=== PATIENT | male | born 1980 | race Two or more races ===

== ENCOUNTER → 2024-08-26 | Outpatient (CLI) | payer SELFPAY | END | disposition home or self-care (01) | PROVIDERS: Referring Provider Otolaryngology; Visit Provider Otolaryngology | DX: J32.9 Chronic sinusitis, unspecified (principal) | CPT/HCPCS: 87070; 87205 ==

== ENCOUNTER 2025-04-27 11:30 | Outpatient (RCR) | payer OTHER, SELFPAY ==
[2025-04-20 09:46] VITALS: BP 145/93; PULSE 66; RESP 18; TEMP 36.4; BMI 27.7
--- NOTE | 2025-04-20 12:46 | PCM.WC.HP ---
History of Present Illness Date of Service: 04/20/25 Chief Complaint: Follow-up on his left medial leg around the heel area just above the heel. 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 Many years ago around 2009. 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 He has history of venous ulcers and this 1 just started out of nowhere he is not sure why. He wears compression stockings that are 22 mmHg all the time especially at work and he does have a vascular doctor that he is actually going to see tomorrow. He has been putting on it a hydrocolloid one by one and it looks very macerated underneath and has a little bit of depth. It is small and irregular oval-shaped ulcer on the right just above his heel, on the medial side. COUNT INCLUDES THE [facility] Home Medications Medication Instructions Recorded Last Taken Type diosmin complex no.1 630 mg tablet 1 tab PO TID 04/20/25 Unknown History (Vasculera) rivaroxaban 20 mg tablet (Xarelto) 20 mg PO DAILY 04/20/25 Unknown History Allergy/AdvReac Type Severity Reaction Status Date / Time No Known Allergies Allergy Verified 04/20/25 09:44 Social History Smoking Status: Never smoker ROS Constitutional Constitutional: Reports systems reviewed and no addt'l complaints, except as documented Eyes Eyes: Reports systems reviewed and no addt'l complaints, except as documented ENT HEENT: Reports systems reviewed and no addt'l complaints, except as documented Cardiovascular Cardiovascular: Reports systems reviewed and no addt'l complaints, except as documented Respiratory/Chest Respiratory/Chest: Reports systems reviewed and no addt'l complaints, except as documented Gastrointestinal Gastrointestinal: Reports systems reviewed and no addt'l complaints, except as documented Genitourinary Genitourinary: Reports systems reviewed and no addt'l complaints, except as documented Musculoskeletal Musculoskeletal: Reports systems reviewed and no addt'l complaints, except as documented Integumentary Integumentary: Reports other Details: Venous ulcer on the medial heel side of his right leg about the size of a dime. Neurologic Neurologic: Reports systems reviewed and no addt'l complaints, except as documented Psychiatric Psychiatric: Reports systems reviewed and no addt'l complaints, except as documented Endocrine Endocrinology: Reports systems reviewed and no addt'l complaints, except as documented Hematologic/Lymphatic Hematologic/Lymphatic: Reports systems reviewed and no addt'l complaints, except as documented Allergic/Immunologic Allergic/Immunologic: Reports systems reviewed and no addt'l complaints, except as documented Vital Signs Vital Signs Vital Signs: 04/20/25 09:46 Temperature 97.5 F L Temperature Source Temporal Pulse Rate 66 Respiratory Rate 18 Blood Pressure 145/93 H Blood Pressure Mean 110 Blood Pressure Source Monitor Blood Pressure Position Semi-Fowlers Blood Pressure Location Left Arm Weight Weight: 240 lb Body Mass Index (BMI) 27.7 Physical Exam Const oriented x3 General Appearance: cooperative HEENT normocephalic Face and Sinus: normal facial exam Nose: external nose normal External Ear: external ears normal Eyes General Eye: normal appearance of both eyes Neck General: normal visual inspection Resp normal respiratory effort Effort and Inspection: able to speak in complete sentences Auscultation: clear to auscultation bilaterally Cardio regular rate and regular rhythm Palpation: normal PMI Rate: regular rate Rhythm: regular rhythm Extremity General Extremity: normal exam except as noted Skin No no wounds and No no petechiae General Skin Exam: erythema and venous stasis Lesions: lesion noted and other Rashes: rashes noted Wound Narrative: Venous ulcer on right lower medial ankle foot area. Open irregular edges kind of macerated. Neuro oriented x3 Psych Appearance: grossly normal Speech: normal speech Thought Content: normal thought content Judgement: judgement good Debridement Note Debridement Note Wound debrided: Venous ulcer Laterality: Right Type of Debridement: Excisional debridement Anesthesia Used: 5% Lidocaine Gel Depth: Down to and including healthy tissue Percentage of wound debrided: 100 Instrument Used: 5mm curette Tissue Removed: Fibrin and devitalized tissue Severity: Fat Layer Exposed Amount of bleeding with debridement: Mild Bleeding Controlled with: Compression and gauze Patient tolerated procedure: Patient tolerated procedure well Post-Debridement Measurements and Additional Note: Post-Debridement Measurements/Treatment WC - Nurse 1 - General Ulcer Assessment Start: 04/20/25 09:43 Freq: Status: Active Protocol: [email or web address] Activity Type Activity Date Activity User E-sign Co-sign Detail Recorded Client Recorded Date Recorded By Document 04/20/25 09:46 RB [id number] 04/20/25 09:55 RB 04/20/25 09:46 WC - Today's Visit Information Type of service Initial Visit Arrival Mode Ambulatory Transfer Assistance None Patient Identification Verified (Name & Yes ) Patient Requires Transmission-Based No Precautions Height and Weight Height 6 ft 6 in Weight 240 lb Weight in Pounds 240.0 lbs Body Mass Index (BMI) 27.7 BMI Classification Overweight Vital Signs Temperature (97.8 F-99.1 F) 97.5 F L Temperature Source Temporal Pulse Rate (60-100) 66 Pulse Location Monitor Respiratory Rate (12-18) 18 Respiratory rate source Observation Blood Pressure (90/60-120/80) 145/93 H Blood Pressure Mean 110 Source Monitor Position Semi-Fowlers Blood Pressure Location Left Arm History Since Last Visit- (Skip if this is Patient's initial visit) Have you changed medications since your No last visit? Any new allergies or adverse reactions No Had a fall/change in ADL's that may No increase risk of falls Signs or symptoms of abuse and/or No neglect since last visit Have you been in the hospital since your No last visit? Has dressing in place as prescribed Yes Has compression in place as prescribed Yes Has offloadiing in place as prescribed N/A Experienced any changes in pain level or No management Left Footwear Regular Shoe Right Footwear Regular Shoe Pain Scale: 0-10 Numeric Is Patient Pain Free? Yes Lower Extremity Assessment/ Foot Assessment/ Toe Nail Assessment Right -Posterior Tibial Palpable Yes -Dorsalis Pedis Palpable Yes -Extremity Color Normal -Hair Growth on Legs Yes -Hair Growth on Toes Yes -Temperature of Extremity Warm -Capillary Refill Less than 3 Seconds -Dependent Rubor No -Blanched when Elevated No -Lipodermatosclerosis No -Other Deformity No -Prior Foot Ulcer No -Charcot Joint No -Prior Amputation No -Thick No -Discolored No -Deformed No -Improper Length & Hygeine Yes Left -Posterior Tibial Palpable Yes -Dorsalis Pedis Palpable Yes -Extremity Color Hemosiderin -Hair Growth on Legs Yes -Hair Growth on Toes Yes -Temperature of Extremity Warm -Capillary Refill Greater than 3 Seconds -Dependent Rubor No -Blanched when Elevated No -Lipodermatosclerosis No -Other Deformity No -Prior Foot Ulcer No -Charcot Joint No -Prior Amputation No -Thick No -Discolored No -Deformed No -Improper Length & Hygeine Yes Neuropathy Assessment Feet - Top Side and Bottom <Entered> (a) Communication Assessment Preferred language Croatian Social Work Nurse Required No Able to Read Yes Able to Write Yes Communication Tools None Right Hearing Abillity Normal Left Hearing Abillity Normal Visual Assistive Devices None Teaching Assessment Preferences Verbal,Written Barriers to Learning None Readiness To Learn Excellent Willingness to Engage in Self Management High Activies Readiness to Engage in Self Management High Activities Anxiety Level Calm Cooperation Cooperative Perception Coherent Interest in Health Problem Asks Questions Education Importance Acknowledges Need Does Patient Smoke tobacco or other No substances Smoking Status Never smoker Is Patient Diabetic No Functional Assessment Recent Decline in Ability to Perform Denies Any Declines Assistive Device With Patient No Culture/Islam/Acid Dumper Cultural/Islam Needs that may affect No Treatment Plan Would you allow our hospital transaction manager to No meet you for the purpose of spiritual/ emotional support? Acid Dumper to contact place of buddhism No Teaching: Wound Center *Welcome to the Wound Center -Person Taught Patient -Teaching Method Discussion, Demonstration -Response to teaching Verbalize Understanding (a) 1 - + throughout WC - Nurse 1 - General Ulcer Measurement Start: 04/20/25 09:43 Freq: Status: Active Protocol: Activity Type Activity Date Activity User E-sign Co-sign Detail Recorded Client Recorded Date Recorded By Document 04/20/25 09:46 RB [id number] 04/20/25 09:55 RB Edit Result 04/20/25 09:46 RB (1) [id number] 04/20/25 10:57 RB (1) 1. left medial ankle - Moisture (Lyndsay-wound Skin Appearance) Assessed => Assessed, => Maceration 04/20/25 09:46 Wound Center Nurse 1 1. left medial ankle -Combined with other wound No -Current Size (cm) - Length 0.8 -Current Size (cm) - Width 0.9 -Current Size (cm) - Depth 0.2 -Total Square Cm 0.72 -Photo Taken Yes -Tunneling No -Undermining/Tunneling No -Circular Undermining No -Exudate Amt Medium -Exudate Type Serosanguineous -Wound Margin Distinct, Outline Attached -Granulation Amt Medium (34-66%) -Granulation Quality [place] -Slough/Fibrin Yes -Necrosis Amt Medium (34-66%) -Necrotic Tissue Type Adherent Slough -Structure Exposed N/A -Texture (Lyndsay-wound Skin Appearance) Assessed -Moisture (Lyndsay-wound Skin Appearance) Assessed, Maceration -Color (Lyndsay-wound Skin Appearance) Hemosiderin Staining -Temperature (Lyndsay-wound Skin No Abnormality Appearance) (Pt Warm) -Tenderness on Palpation (Lyndsay-wound No Skin Appearance) -Ulcer Cleansing Wound Cleanser -Foul Odor after Cleansing No -Anesthetic Used 5% Lidocaine Gel Lower Limb Edema Present Yes Right Calf (cm) 43 Right Ankle (cm) 24.6 Left Calf (cm) 42.7 Left Ankle (cm) 25.5 WC - Nurse 2 - General Ulcer CM Notes Start: 04/20/25 09:43 Freq: Status: Active Protocol: Activity Type Activity Date Activity User E-sign Co-sign Detail Recorded Client Recorded Date Recorded By Document 04/20/25 10:06 [facility] [id number] 04/20/25 10:17 BM 04/20/25 10:06 Wound Center Nurse 2 1. left medial ankle -Time 10:07 -Correct Patient Yes -Correct Side, Site, Position Yes -Correct Procedure Yes -Procedure Performed Yes -Type of Procedure Debridement -Clinical Debridement Subcutaneous -Tissue Removed Subcutaneous -Post Debridement (cm) - Length 0.8 -Post Debridement (cm) - Width 0.8 -Post Debridement (cm) - Depth 0.2 -Total Square (Post) (cm) 0.64 -Area of Debridement (cm) - Length 0.8 -Area of Debridement (cm) - Width 0.8 -Total Square (Area) (cm) 0.64 -Tunneling No -Undermining/Tunneling No -Circular Undermining No -Wound/Ulcer Outcome Not Healed -Ulcer Cleansing Rinsed/ Irrigated with Saline -Foul Odor after Cleansing No -Bioengineered Tissue No -Bleeding Controlled with Pressure -Treatment Response Procedure Tolerated Well -Debridement - Subq, 1st 20sq cm Yes Pain Scale: 0-10 Numeric Is Patient Pain Free? Yes - Nurse 3 - General Ulcer D/C NN Start: 04/20/25 09:43 Freq: Status: Active Protocol: Activity Type Activity Date Activity User E-sign Co-sign Detail Recorded Client Recorded Date Recorded By Document 04/20/25 10:31 DL [id number] 04/20/25 10:33 DL 04/20/25 10:31 Wound Care Center Nurse 3 1. left medial ankle -Ulcer Cleansing Rinsed/ Irrigated with Saline -Foul Odor after Cleansing No -Primary Dressing Applied Fibracol Plus 4x4,Silicone Border Foam 4x4 -Fibracol Plus 4x4 1 -Silicone Border Foam 4x4 1 Pain Scale: 0-10 Numeric Is Patient Pain Free? Yes WC - Visit Discharge Discharge Condition Stable Ambulatory Status Ambulatory Transportation Private Auto Assessment/Plan Assessment/Plan (1) Venous ulcer of right lower extremity with varicose veins: CODE(S): I83.019 - Varicose veins of right lower extremity with ulcer of unspecified site; L97.919 - Non-pressure chronic ulcer of unspecified part of right lower leg with unspecified severity PLAN: Wash right leg with antibacterial soap and water and pat dry apply Fibracol to wound base moistened with a 2 x 2 Gillette SAP over top this can be done twice a day till healed. Follow-up in 1 week (2) Nonhealing ulcer of right lower leg: CODE(S): L97.919 - Non-pressure chronic ulcer of unspecified part of right lower leg with unspecified severity QUALIFIERS: Non-pressure ulcer stage: with fat layer exposed Qualified Code(s): L97.912 - Non-pressure chronic ulcer of unspecified part of right lower leg with fat layer exposed (3) History of blood clots: CODE(S): Z86.718 - Personal history of other venous thrombosis and embolism
--- NOTE | 2025-04-20 13:58 | WC ---
PHOTO-LEFT MEDIAL ANKLE 04/20/25
[2025-04-27 11:50] VITALS: BP 127/83; PULSE 46; RESP 18; TEMP 36.2; BMI 27.7
--- NOTE | 2025-04-27 12:53 | PN.PCM_ITS ---
History of Present Illness Date of Service: 04/27/25 Chief Complaint: Follow-up on his left medial leg around the heel area just above the heel. 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 Many years ago around 2009. 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 He has history of venous ulcers and this 1 just started out of nowhere he is not sure why. He wears compression stockings that are 22 mmHg all the time especially at work and he does have a vascular doctor that he is actually going to see tomorrow. He has been putting on it a hydrocolloid one by one and it looks very macerated underneath and has a little bit of depth. It is small and irregular oval-shaped ulcer on the right just above his heel, on the medial side. Progress of Wound: The wound is practically healed he just has a small divot there we will see him again in 2 weeks he can continue the same dressing changes it just seems to ooze a little bit but he sees vascular surgery this next week. Subjective Subjective Patient asked to be seen in 2 weeks because he is going to see the vascular surgeon this next week. Objective Data Objective Data Healing nicely no redness flesh-colored is just in a precarious position of between around his heel but above on his ankle. Vital Signs: Vital Signs Temp Pulse Resp BP 97.1 F L 46 L 18 127/83 H 04/27/25 11:50 04/27/25 11:50 04/27/25 11:50 04/27/25 11:50 Weight: 240 lb Body Mass Index (BMI) 27.7 Physical Exam Const oriented x3 General Appearance: cooperative HEENT normocephalic Face and Sinus: normal facial exam Nose: external nose normal External Ear: external ears normal Eyes General Eye: normal appearance of both eyes Neck General: normal visual inspection Resp normal respiratory effort Effort and Inspection: able to speak in complete sentences Auscultation: clear to auscultation bilaterally Cardio regular rate and regular rhythm Palpation: normal PMI Rate: regular rate Rhythm: regular rhythm Extremity General Extremity: normal exam except as noted Skin No no wounds and No no petechiae General Skin Exam: erythema and venous stasis Lesions: lesion noted and other Rashes: rashes noted Wound Narrative: Venous ulcer on right lower medial ankle foot area. Open irregular edges kind of macerated. Neuro oriented x3 Psych Appearance: grossly normal Speech: normal speech Thought Content: normal thought content Judgement: judgement good Debridement Note Debridement Note Wound debrided: Venous ulcer Laterality: Right Type of Debridement: Selective debridement Anesthesia Used: 5% Lidocaine Gel Depth: Down to and including healthy tissue Percentage of wound debrided: 100 Instrument Used: 3mm curette Tissue Removed: Fibrin and devitalized tissue Severity: Limited To Skin Breakdown Bleeding Controlled with: Compression and gauze Patient tolerated procedure: Patient tolerated procedure well Post-Debridement Measurements and Additional Note: Post-Debridement Measurements/Treatment - Nurse 1 - General Ulcer Assessment Start: 04/20/25 09:43 Freq: Status: Active Protocol: CURT Activity Type Activity Date Activity User E-sign Co-sign Detail Recorded Client Recorded Date Recorded By Document 04/20/25 09:46 [id number] 04/20/25 09:55 RB Document 04/27/25 11:50 [id number] 04/27/25 11:52 RB 04/20/25 04/27/25 09:46 11:50 - Today's Visit Information Type of service Initial Visit 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 ) Arrival Mode Ambulatory Ambulatory Transfer Assistance None None Patient Identification Verified (Name & Yes Yes ) Patient Requires Transmission-Based No No Precautions Height and Weight Height 6 ft 6 in Weight 240 lb Weight in Pounds 240.0 lbs Body Mass Index (BMI) 27.7 27.7 BMI Classification Overweight Overweight Vital Signs Temperature (97.8 F-99.1 F) 97.5 F L 97.1 F L Temperature Source Temporal Temporal Pulse Rate (60-100) 66 46 L Pulse Location Monitor Monitor Respiratory Rate (12-18) 18 18 Respiratory rate source Observation Observation Blood Pressure (90/60-120/80) 145/93 H 127/83 H Blood Pressure Mean (mm Hg) 110 97 Source Monitor Monitor Position Semi-Fowlers Semi-Fowlers Blood Pressure Location Left Arm Left Arm History Since Last Visit- (Skip if this is Patient's initial visit) Have you changed medications since your No No last visit? Any new allergies or adverse reactions No No Had a fall/change in ADL's that may No No increase risk of falls Signs or symptoms of abuse and/or No No neglect since last visit Have you been in the hospital since your No No last visit? Has dressing in place as prescribed Yes Yes Has compression in place as prescribed Yes Yes Has offloadiing in place as prescribed N/A N/A Experienced any changes in pain level or No No management Left Footwear Regular Shoe Regular Shoe Right Footwear Regular Shoe Regular Shoe Pain Scale: 0-10 Numeric Is Patient Pain Free? Yes Yes Lower Extremity Assessment/ Foot Assessment/ Toe Nail Assessment Right -Posterior Tibial Palpable Yes -Dorsalis Pedis Palpable Yes -Extremity Color Normal -Hair Growth on Legs Yes -Hair Growth on Toes Yes -Temperature of Extremity Warm -Capillary Refill Less than 3 Seconds -Dependent Rubor No -Blanched when Elevated No -Lipodermatosclerosis No -Other Deformity No -Prior Foot Ulcer No -Charcot Joint No -Prior Amputation No -Thick No -Discolored No -Deformed No -Improper Length & Hygeine Yes Left -Posterior Tibial Palpable Yes -Dorsalis Pedis Palpable Yes -Extremity Color Hemosiderin -Hair Growth on Legs Yes -Hair Growth on Toes Yes -Temperature of Extremity Warm -Capillary Refill Greater than 3 Seconds -Dependent Rubor No -Blanched when Elevated No -Lipodermatosclerosis No -Other Deformity No -Prior Foot Ulcer No -Charcot Joint No -Prior Amputation No -Thick No -Discolored No -Deformed No -Improper Length & Hygeine Yes Neuropathy Assessment Feet - Top Side and Bottom <Entered> (a) Communication Assessment Preferred language Serbian Roll Scale Worker Required No Able to Read Yes Able to Write Yes Communication Tools None Right Hearing Abillity Normal Left Hearing Abillity Normal Visual Assistive Devices None Teaching Assessment Preferences Verbal,Written Barriers to Learning None Readiness To Learn Excellent Willingness to Engage in Self Management High Activies Readiness to Engage in Self Management High Activities Anxiety Level Calm Cooperation Cooperative Perception Coherent Interest in Health Problem Asks Questions Education Importance Acknowledges Need Does Patient Smoke tobacco or other No substances Smoking Status Never smoker Is Patient Diabetic No Functional Assessment Recent Decline in Ability to Perform Denies Any Declines Assistive Device With Patient No Culture/Jew/Supervisor Small Appliance Assembly Cultural/Jew Needs that may affect No Treatment Plan Would you allow our hospital [facility] to No meet you for the purpose of spiritual/ emotional support? Supervisor Small Appliance Assembly to contact place of rastafarian No Teaching: Wound Center *Welcome to the Wound Center -Person Taught Patient -Teaching Method Discussion, Demonstration -Response to teaching Verbalize Understanding (a) 1 - + throughout WC - Nurse 1 - General Ulcer Measurement Start: 04/20/25 09:43 Freq: Status: Active Protocol: Activity Type Activity Date Activity User E-sign Co-sign Detail Recorded Client Recorded Date Recorded By Document 04/20/25 09:46 RB [id number] 04/20/25 09:55 RB Edit Result 04/20/25 09:46 RB (1) [id number] 04/20/25 10:57 RB Document 04/27/25 11:50 RB [id number] 04/27/25 11:52 RB Edit Result 04/27/25 11:50 RB (2) [id number] 04/27/25 11:54 RB (1) 1. left medial ankle - Moisture (Lyndsay-wound Skin Appearance) Assessed => Assessed, => Maceration (2) Left Calf (cm) 44.5 => 42 Left Ankle (cm) 27.5 => 25.2 04/20/25 04/27/25 09:46 11:50 Wound Center Nurse 1 1. left medial ankle -Combined with other wound No No -Current Size (cm) - Length 0.8 0.1 -Current Size (cm) - Width 0.9 0.1 -Current Size (cm) - Depth 0.2 0.1 -Total Square Cm 0.72 0.01 -Photo Taken Yes Yes -Tunneling No No -Undermining/Tunneling No No -Circular Undermining No No -Exudate Amt Medium Medium -Exudate Type Serosanguineous Serosanguineous -Wound Margin Distinct, Distinct, Outline Outline Attached Attached -Granulation Amt Medium (34-66%) Medium (34-66%) -Granulation Quality [place] -Slough/Fibrin Yes Yes -Necrosis Amt Medium (34-66%) Small (1-33%) -Necrotic Tissue Type Adherent Slough Adherent Slough -Structure Exposed N/A N/A -Texture (Lyndsay-wound Skin Appearance) Assessed Assessed, Scarring -Moisture (Lyndsay-wound Skin Appearance) Assessed, Assessed, Maceration Weeping -Color (Lyndsay-wound Skin Appearance) Hemosiderin Assessed Staining -Temperature (Lyndsay-wound Skin No Abnormality No Abnormality Appearance) (Pt Warm) (Pt Warm) -Tenderness on Palpation (Lyndsay-wound No No Skin Appearance) -Ulcer Cleansing Wound Cleanser Wound Cleanser -Foul Odor after Cleansing No No -Anesthetic Used 5% Lidocaine 5% Lidocaine Gel Gel Lower Limb Edema Present Yes Yes Right Calf (cm) 43 Right Ankle (cm) 24.6 Left Calf (cm) 42.7 42 Left Ankle (cm) 25.5 25.2 WC - Nurse 2 - General Ulcer CM Notes Start: 04/20/25 09:43 Freq: Status: Active Protocol: Activity Type Activity Date Activity User E-sign Co-sign Detail Recorded Client Recorded Date Recorded By Document 04/20/25 10:06 [facility] [id number] 04/20/25 10:17 [facility] Document 04/27/25 11:59 [facility] [id number] 04/27/25 12:02 [facility] 04/20/25 04/27/25 10:06 11:59 Wound Center Nurse 2 1. left medial ankle -Time 10:07 11:59 -Correct Patient Yes Yes -Correct Side, Site, Position Yes Yes -Correct Procedure Yes Yes -Procedure Performed Yes Yes -Type of Procedure Debridement Debridement -Clinical Debridement Subcutaneous Subcutaneous -Tissue Removed Subcutaneous Subcutaneous -Post Debridement (cm) - Length 0.8 0.4 -Post Debridement (cm) - Width 0.8 0.4 -Post Debridement (cm) - Depth 0.2 0.1 -Total Square (Post) (cm) 0.64 0.16 -Area of Debridement (cm) - Length 0.8 0.4 -Area of Debridement (cm) - Width 0.8 0.4 -Total Square (Area) (cm) 0.64 0.16 -Tunneling No No -Undermining/Tunneling No No -Circular Undermining No No -Wound/Ulcer Outcome Not Healed Not Healed -Ulcer Cleansing Rinsed/ Rinsed/ Irrigated with Irrigated with Saline Saline -Foul Odor after Cleansing No No -Bioengineered Tissue No No -Bleeding Controlled with Pressure Pressure -Treatment Response Procedure Procedure Tolerated Well Tolerated Well -Debridement - Subq, 1st 20sq cm Yes Yes Pain Scale: 0-10 Numeric Is Patient Pain Free? Yes Yes WC - Nurse 3 - General Ulcer D/C NN Start: 04/20/25 09:43 Freq: Status: Active Protocol: Activity Type Activity Date Activity User E-sign Co-sign Detail Recorded Client Recorded Date Recorded By Document 04/20/25 10:31 DL [id number] 04/20/25 10:33 DL Document 04/27/25 12:06 [facility] [id number] 04/27/25 12:13 [facility] 04/20/25 04/27/25 10:31 12:06 Wound Care Center Nurse 3 1. left medial ankle -Ulcer Cleansing Rinsed/ Irrigated with Saline -Foul Odor after Cleansing No No -Negative Pressure Wound Therapy N/A -Primary Dressing Applied Fibracol Plus 4x4,Silicone Border Foam 4x4 -Primary Dressing Covered/Secured with Dry Gauze, Secured with Tape -Fibracol Plus 4x4 1 1 -Silicone Border Foam 4x4 1 Pain Scale: 0-10 Numeric Is Patient Pain Free? Yes Yes WC - Visit Discharge Discharge Condition Stable Stable Ambulatory Status Ambulatory Ambulatory Transportation Private Auto Private Auto Medication Reconcilliation completed & No provided to patient/care provider Clinical Summary of Care Provided Yes Assessment/Plan Assessment/Plan (1) Venous ulcer of right lower extremity with varicose veins: CODE(S): I83.019 - Varicose veins of right lower extremity with ulcer of unspecified site; L97.919 - Non-pressure chronic ulcer of unspecified part of right lower leg with unspecified severity PLAN: Wash right leg with antibacterial soap and water and pat dry apply Fibracol to wound base moistened with a 2 x 2 [place] SAP over top this can be done twice a day till healed. Follow-up in 2 week (2) Nonhealing ulcer of right lower leg: CODE(S): L97.919 - Non-pressure chronic ulcer of unspecified part of right lower leg with unspecified severity QUALIFIERS: Non-pressure ulcer stage: with fat layer exposed Qualified Code(s): L97.912 - Non-pressure chronic ulcer of unspecified part of right lower leg with fat layer exposed (3) History of blood clots: CODE(S): Z86.718 - Personal history of other venous thrombosis and embolism
--- NOTE | 2025-04-27 13:50 | WC ---
PHOTO-L MED ANKLE 04/27/25
== END 2025-05-01 23:59 | disposition home or self-care (01) ==
LOC: WC 11:30
PROVIDERS: PCP Physician Assistant; Referring Provider Physician Assistant; Visit Provider Nurse Practitioner
DX: I83.013 Varicose veins of right lower extremity with ulcer of ankle (principal); L97.312 Non-pressure chronic ulcer of right ankle with fat layer exposed; L97.311 Non-pressure chronic ulcer of right ankle limited to breakdown of skin; Z86.718 Personal history of other venous thrombosis and embolism
CPT/HCPCS: 11042; 99204; G0463

== ENCOUNTER 2025-05-11 11:33 | Outpatient (RCR) | payer OTHER, SELFPAY ==
[2025-05-11 11:33] VITALS: BP 122/79; PULSE 46; TEMP 36.4
--- NOTE | 2025-05-11 11:53 | PN.PCM_ITS ---
History of Present Illness Date of Service: 05/11/25 Chief Complaint: Follow-up on his left medial leg around the heel area just above the heel. 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 Many years ago around 2009. 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 He has history of venous ulcers and this 1 just started out of nowhere he is not sure why. He wears compression stockings that are 22 mmHg all the time especially at work and he does have a vascular doctor that he is actually going to see tomorrow. He has been putting on it a hydrocolloid one by one and it looks very macerated underneath and has a little bit of depth. It is small and irregular oval-shaped ulcer on the right just above his heel, on the medial side. Progress of Wound: Left medial ankle is almost healed it does have baby skin over it is still oozing some fluid clear fluid. He did get his studies done at his hospital and he does have some connector problems and he is scheduled for surgery. 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 Told him he needs to scrape around the area once a week just to make until it heals totally. If he has questions he can always call or come back. Subjective Subjective Patient was very thankful that we were can make him come back he is only coming every 2 weeks anyways and he is healing fine it is almost done it basically is a dot and once he has the surgeries that we will stop. Objective Data Objective Data No sign of infection no redness no swelling he has been very compliant with wearing compression stockings and using his Fibracol with a border dressing. Vital Signs: Vital Signs Temp Pulse BP 97.6 F L 46 L 122/79 H 05/11/25 11:33 05/11/25 11:33 05/11/25 11:33 Lab / Micro Data Attestation: I reviewed the patient's lab results. Physical Exam Const oriented x3 General Appearance: cooperative HEENT normocephalic Face and Sinus: normal facial exam Nose: external nose normal External Ear: external ears normal Eyes General Eye: normal appearance of both eyes Neck General: normal visual inspection Resp normal respiratory effort Effort and Inspection: able to speak in complete sentences Auscultation: clear to auscultation bilaterally Cardio regular rate and regular rhythm Palpation: normal PMI Rate: regular rate Rhythm: regular rhythm Extremity General Extremity: normal exam except as noted Skin No no wounds and No no petechiae General Skin Exam: erythema and venous stasis Lesions: lesion noted and other Rashes: rashes noted Wound Narrative: Venous ulcer on right lower medial ankle foot area. Open irregular edges kind of macerated. Neuro oriented x3 Psych Appearance: grossly normal Speech: normal speech Thought Content: normal thought content Judgement: judgement good Debridement Note Debridement Note Wound debrided: Venous ulcer Laterality: Right Type of Debridement: Selective debridement Anesthesia Used: 5% Lidocaine Gel Depth: Down to and including healthy tissue Percentage of wound debrided: 100 Instrument Used: 3mm curette Tissue Removed: Fibrin and devitalized tissue Severity: Limited To Skin Breakdown Bleeding Controlled with: Compression and gauze Patient tolerated procedure: Patient tolerated procedure well Post-Debridement Measurements and Additional Note: Post-Debridement Measurements/Treatment - Nurse 1 - General Ulcer Assessment Start: 05/11/25 11:33 Freq: Status: Active Protocol: CURT Activity Type Activity Date Activity User E-sign Co-sign Detail Recorded Client Recorded Date Recorded By Document 05/11/25 11:33 [facility] [id number] 05/11/25 11:37 [facility] 05/11/25 11:33 - Today's Visit Information Type of service 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 Any new allergies or adverse reactions No Had a fall/change in ADL's that may No increase risk of falls Signs or symptoms of abuse and/or No neglect since last visit Have you been in the hospital since your No last visit? Has dressing in place as prescribed Yes Has compression in place as prescribed Yes Has offloadiing in place as prescribed N/A Experienced any changes in pain level or No management Left Footwear Regular Shoe Right Footwear Regular Shoe Pain Scale: 0-10 Numeric Is Patient Pain Free? Yes - Nurse 1 - General Ulcer Measurement Start: 05/11/25 11:33 Freq: Status: Active Protocol: Activity Type Activity Date Activity User E-sign Co-sign Detail Recorded Client Recorded Date Recorded By Document 05/11/25 11:33 [facility] [id number] 05/11/25 11:37 [facility] 05/11/25 11:33 Wound Center Nurse 1 1. left medial ankle -Combined with other wound No -Current Size (cm) - Length 0.3 -Current Size (cm) - Width 0.3 -Current Size (cm) - Depth 0.2 -Total Square Cm 0.09 -Date of Last Picture (Recall this 05/11/25 field) -Photo Taken Yes -Tunneling No -Undermining/Tunneling No -Circular Undermining No -Exudate Amt Medium -Exudate Type Serosanguineous -Wound Margin Distinct, Outline Attached -Granulation Amt Medium (34-66%) -Granulation Quality [place] -Slough/Fibrin Yes -Necrosis Amt Medium (34-66%) -Necrotic Tissue Type Adherent Slough -Texture (Lyndsay-wound Skin Appearance) Assessed, Scarring -Moisture (Lyndsay-wound Skin Appearance) Assessed,Dry/ Scaly -Color (Lyndsay-wound Skin Appearance) Assessed -Temperature (Lyndsay-wound Skin No Abnormality Appearance) (Pt Warm) -Tenderness on Palpation (Lyndsay-wound No Skin Appearance) -Ulcer Cleansing Rinsed/ Irrigated with Saline -Foul Odor after Cleansing No -Anesthetic Used 5% Lidocaine Gel Left Calf (cm) 43.9 Left Ankle (cm) 26 WC - Nurse 2 - General Ulcer CM Notes Start: 05/11/25 11:33 Freq: Status: Active Protocol: Activity Type Activity Date Activity User E-sign Co-sign Detail Recorded Client Recorded Date Recorded By Document 05/11/25 11:40 [facility] [id number] 05/11/25 11:43 [facility] 05/11/25 11:40 Wound Center Nurse 2 1. left medial ankle -Time 11:40 -Correct Patient Yes -Correct Side, Site, Position Yes -Correct Procedure Yes -Procedure Performed Yes -Type of Procedure Debridement -Clinical Debridement Subcutaneous -Tissue Removed Subcutaneous -Post Debridement (cm) - Length 0.9 -Post Debridement (cm) - Width 0.3 -Post Debridement (cm) - Depth 0.1 -Total Square (Post) (cm) 0.27 -Area of Debridement (cm) - Length 0.9 -Area of Debridement (cm) - Width 0.3 -Total Square (Area) (cm) 0.27 -Tunneling No -Undermining/Tunneling No -Circular Undermining No -Wound/Ulcer Outcome Not Healed -Ulcer Cleansing Rinsed/ Irrigated with Saline -Foul Odor after Cleansing No -Bioengineered Tissue No -Bleeding Controlled with Pressure -Treatment Response Procedure Tolerated Well -Debridement - Subq, 1st 20sq cm Yes Pain Scale: 0-10 Numeric Is Patient Pain Free? Yes - Nurse 3 - General Ulcer D/C NN Start: 05/11/25 11:33 Freq: Status: Active Protocol: Activity Type Activity Date Activity User E-sign Co-sign Detail Recorded Client Recorded Date Recorded By Document 05/11/25 11:46 [facility] [id number] 05/11/25 11:47 [facility] 05/11/25 11:46 Wound Care Center Nurse 3 1. left medial ankle -Ulcer Cleansing Rinsed/ Irrigated with Saline -Foul Odor after Cleansing No -Primary Dressing Applied Fibracol Plus 4x4 -Other Dressing PTS OWN 2X2 BORDER DRSG ON TOP -Fibracol Plus 4x4 1 Pain Scale: 0-10 Numeric Is Patient Pain Free? Yes - Visit Discharge Discharge Condition Stable Ambulatory Status Ambulatory Transportation Private Auto Assessment/Plan Assessment/Plan (1) Venous ulcer of right lower extremity with varicose veins: CODE(S): I83.019 - Varicose veins of right lower extremity with ulcer of unspecified site; L97.919 - Non-pressure chronic ulcer of unspecified part of right lower leg with unspecified severity PLAN: Continue to wash right leg with antibacterial soap and water and pat dry apply Fibracol to wound base moistened with a 2 x 2 [place] SAP over top until the surgery is complete. Discharge from the wound center and follow-up as needed. (2) Nonhealing ulcer of right lower leg: CODE(S): L97.919 - Non-pressure chronic ulcer of unspecified part of right lower leg with unspecified severity QUALIFIERS: Non-pressure ulcer stage: with fat layer exposed Qualified Code(s): L97.912 - Non-pressure chronic ulcer of unspecified part of right lower leg with fat layer exposed (3) History of blood clots: CODE(S): Z86.718 - Personal history of other venous thrombosis and embolism
--- NOTE | 2025-05-11 12:53 | WC ---
PHOTO-LEFT MED ANKLE 05/11/25
--- NOTE | 2025-06-10 13:36 | WC ---
received call from pt. pt states received a bill from [employer] for $600 for supplies that he did not use. informed pt that I will talk with [employer] to look into his order. email sent to [facility]. Viv stein will look into his record and call the pt back herself. called pt and left VM regarding this information
== END 2025-05-31 15:48 | disposition home or self-care (01) ==
LOC: WC 11:33
PROVIDERS: PCP Physician Assistant; Referring Provider Physician Assistant; Visit Provider Nurse Practitioner
DX: I83.013 Varicose veins of right lower extremity with ulcer of ankle (principal); L97.311 Non-pressure chronic ulcer of right ankle limited to breakdown of skin
CPT/HCPCS: 11042